=== PATIENT | male | born 1950 | race Caucasian/White ===

== ENCOUNTER 2018-03-14 12:32 | Emergency (ER) | payer MEDICARE, OTHER ==
[~2018-03-14] VITALS: Ht 182.9 cm; Wt 78.0 kg
[2018-03-14 12:37] VITALS: BP 157/102
[2018-03-14] MEDS ORDERED: CHLO473M3 PO (12:53)
[2018-03-14] MEDS ORDERED: AMOX-100 PO (12:53)
== END 2018-03-14 12:58 | disposition home or self-care (01) ==
LOC: ER 12:33
DX: K04.7 Periapical abscess without sinus (principal)
CPT/HCPCS: 99284